=== PATIENT | female | born 1975 | race Caucasian/White ===

== ENCOUNTER 2021-02-26 05:43 | Outpatient (CLI) | payer BC ==
[~2021-02-26] VITALS: Ht 170.2 cm; Wt 80.2 kg
[~2021-02-26 05:43] MED LIST: CPR500T PO; FLC100T1 PO; HYDR-3583 PO; METO-354 PO; OMEP-10 PO; SCP1.5TD TOP; sprintec PO
[2021-02-26] MEDS ORDERED: FEXO1TAB43 PO (13:21)
[2021-02-26] MEDS ORDERED: OMEP20TA7 PO (13:21)
== END 2021-02-26 15:15 | disposition home or self-care (01) ==
LOC: PREOP 05:43
PROVIDERS: ATTEND Surgery
DX: Z01.818 Encounter for other preprocedural examination (principal)

== ENCOUNTER 2021-03-05 07:10 | Day surgery (SDC) | payer BC ==
[~2021-03-05] VITALS: Ht 170.8 cm; Wt 80.2 kg
[2021-03-05] VITALS (8 sets, daily range): BP systolic 106–132; BP diastolic 71–95
[~2021-03-05 07:10] MED LIST changes: +FEXO1TAB43 PO; +OMEP20TA7 PO
[2021-03-05] MEDS ORDERED: LACTATED RINGERS 1,000 ML IV ONE (07:17)
[2021-03-05] MEDS ORDERED: PROPOFOL INJECTION 50 ML IV ONE ×2 (08:11→08:20)
[2021-03-05] MEDS ORDERED: LACTATED RINGERS 1,000 ML IV STA (08:11)
[2021-03-05] MEDS ORDERED: LACTATED RINGERS 1,000 ML IV SCH (08:15)
--- NOTE | 2021-03-05 08:48 | Discharge Inst-Simple/Standard ---
Discharge Inst-Standard Patient Instructions/Follow Up Plan of Care/Instructions/FU: 5 year Lucina, any issues with bowel before that be seen at that time. Activity as Tolerated: Yes Discharge Diet: Regular Diet (high fiber) MICHELLE BAH DO Mar 05, 2021 08:48
--- NOTE | 2021-03-05 12:59 | OPERATIVE REPORT ---
DATE OF SERVICE: 03/05/2021 PREOPERATIVE DIAGNOSIS: Family history of colon cancer. POSTOPERATIVE DIAGNOSIS: Normal colon. PROCEDURE: Colonoscopy. SURGEON: Michelle Verdugo DO ANESTHESIA: Per FACE MAN. ESTIMATED BLOOD LOSS: None. COMPLICATIONS: None. INDICATIONS: The patient is a 46-year-old female with family history of colon cancer. She understands risks and benefits of procedure and wished to proceed with procedure. Consent was signed in the chart. DESCRIPTION OF PROCEDURE: The patient was taken to the endoscopy suite, placed in left lateral recumbent position. Timeout was performed. Digital rectal exam was performed. There were no palpable polyps, masses or ulcerations. Scope was inserted in the rectum and advanced all the way to cecum with minimal difficulty. Prep was adequate. Scope was then slowly retracted back. No polyps, masses or ulcerations within the cecum, ascending, transverse, descending and sigmoid colon. Once in the rectum, scope was retroflexed noting no other pathology. Scope was returned to its normal position, slowly withdrawn until completely removed. The patient tolerated procedure well without any complications. She was taken to recovery room in stable condition. RECOMMENDATIONS: The patient will need repeat colonoscopy in 5 years. Any issues before that be reevaluated at that time and discuss repeating. Job ID: [id number] DocumentID: [id number] Dictated Date: 03/05/2021 08:50:27 Water Safety Instructor Date: 03/05/2021 12:58:35 Dictated By: MICHELLE VERDUGO DO
--- NOTE | 2021-03-05 14:19 | Anesthesia-General Post-Op ---
MAC Patient Condition Mental Status/LOC: Same as Preop Cardiovascular: Satisfactory Nausea/Vomiting: Absent Respiratory: Satisfactory Pain: Controlled Complications: Absent Post Op Complications Complications None Follow Up Care/Instructions Patient Instructions None needed. Anesthesiology Discharge Order Discharge Order Patient is doing well, no complaints, stable vital signs, no apparent adverse anesthesia problems. No complications reported per nursing. YUKI MONET CRNA Mar 05, 2021 14:19
== END 2021-03-05 09:30 | disposition home or self-care (01) ==
LOC: ENDO 07:10
PROVIDERS: ATTEND Surgery
DX: Z12.11 Encounter for screening for malignant neoplasm of colon (principal); K21.9 Gastro-esophageal reflux disease without esophagitis; Z80.0 Family history of malignant neoplasm of digestive organs; Z90.49 Acquired absence of other specified parts of digestive tract; Z87.891 Personal history of nicotine dependence

== ENCOUNTER 2022-06-30 17:35 | Emergency (ER) | payer BC ==
[~2022-06-30] VITALS: Ht 170.1 cm; Wt 77.1 kg
[~2022-06-30 17:35] MED LIST changes: +OMEP20TA56 PO; -OMEP20TA7 PO
--- NOTE | 2022-06-30 18:12 | ED Lower Extremity ---
General Chief Complaint: Lower Extremity Stated Complaint: RIGHT ANKLE PAIN, LEFT KNEE PAIN Nursing Triage Note: PT TO FT 1 WITH CC OF L KNEE AND L ANKLE PAIN. PT STATES MISSED THE BOTTOM STEP AT HOME AND TWISTED HER ANKLE AND HIT HER KNEE. PT DENIES HITTING HER HEAD. NO OTHER PAIN IS NOTED AT THIS TIME. Source: patient Exam Limitations: no limitations (CASSIDY KURTZ APRN) History of Present Illness Date Seen by Provider: Jun 30, 2022 Time Seen by Provider: 17:50 Initial Comments Patient is a 47 yo F who presents to the ED with L knee and R ankle pain after fell when she missed a step walking up the garage steps at her house. She states she fell onto her knees and twisted her R ankle. No medications for the symptoms today. States pain is worse in her R ankle with movement or ambulation. L knee pain is mild and only worse with palpation. She did not hit her head and denies any pain or injury outside of those listed above. Onset: this evening Pain/Injury Location: left knee; right ankle Method of Injury: fell (CASSIDY KURTZ APRN) Allergies and Home Medications Allergies Coded Allergies: sulfamethoxazole (Unverified Allergy, Unknown, 02/26/21) tramadol (Unverified Allergy, Unknown, 02/26/21) trimethoprim (Unverified Allergy, Unknown, 02/26/21) codeine (Unverified Adverse Reaction, Mild, NAUSEATED, 05/17/10) Patient Home Medication List Home Medication List Reviewed: Yes (CASSIDY KURTZ APRN) Fexofenadine/Pseudoephedrine (Virgen-D 24 Hour Tablet) 1 Each Tab.er.24h, 1 EACH PO DAILY, (Reported) Entered as Reported by: SUNSHINE PEDERSEN on 02/26/21 1321 Omeprazole (Omeprazole) 20 Mg Tablet.dr, 20 MG PO DAILY, (Reported) Entered as Reported by: SUNSHINE PEDERSEN on 02/26/21 1321 Review of Systems Constitutional: no symptoms reported EENTM: no symptoms reported Respiratory: no symptoms reported Cardiovascular: no symptoms reported Gastrointestinal: no symptoms reported Genitourinary: no symptoms reported Musculoskeletal: see HPI Skin: no symptoms reported (CASSIDY KURTZ APRN) Past Mvcmiog-Hpkafq-Twjqbu Hx Patient Social History Tobacco Use?: No Substance use?: No Alcohol Use?: No (CASSIDY KURTZ APRN) Immunizations Up To Date First/Initial COVID19 Vaccinat: NO Second COVID19 Vaccination Warner: NO Third COVID19 Vaccination Date: NO (CASSIDY KURTZ APRN) Past Medical History Surgery/Hospitalization HX: GALLBLADDER, TOTAL HYST Surgeries: Yes (LAP CHOLY SEP, 2007/ HYSTERECTOMY) Gallbladder, Hysterectomy Respiratory: No Cardiac: No Neurological: No Reproductive Disorders: No 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 Genitourinary: No Gastrointestinal: Yes Chronic Constipation Musculoskeletal: No Endocrine: No HEENT: No Loss of Vision: Denies Hearing Impairment: Denies Cancer: No Psychosocial: No Integumentary: No Blood Disorders: No Adverse Reaction/Blood Tranf: No (CASSIDY KURTZ APRN) Family Medical History Colon cancer requiring screening colonoscopy Physical Exam Vital Signs Vital Signs - First Documented 06/30/22 17:44 Temp 36.8 Pulse 80 Resp 18 B/P (MAP) 154/94 (114) Pulse Ox 98 O2 Delivery Room Air (COCO,KARLENE K DO) Vital Signs Capillary Refill : Less Than 3 Seconds (CASSIDY KURTZ APRN) Height, Weight, BMI Height: '" Weight: lbs. oz. kg; 26.00 BMI Method:Stated General Appearance: WD/WN, no apparent distress HEENT: PERRL/EOMI, normal ENT inspection Neck: non-tender, full range of motion, normal inspection Cardiovascular: normal peripheral pulses, regular rate, rhythm Respiratory: chest non-tender, lungs clear, normal breath sounds, no respiratory distress Gastrointestinal: normal bowel sounds, non tender, soft Back: normal inspection Knees: left knee normal inspection, left knee normal range of motion, left knee soft tissue tenderness Ankles: right ankle limited range of motion, right ankle pain, right ankle soft tissue tenderness, right ankle swelling (CASSIDY KURTZ APRN) Progress/Results/Core Measures Results/Orders Vital Signs/I&O 06/30/22 06/30/22 17:44 19:20 Temp 36.8 Pulse 80 80 Resp 18 18 B/P (MAP) 154/94 (114) 154/94 Pulse Ox 98 98 O2 Delivery Room Air Room Air (COCO,KARLENE K DO) Blood Pressure Mean: 114 Progress Progress Note : Progress Note Patient is nontoxic and well hydrated on exam. Lateral swelling noted to the R ankle. L knee exam is reassuring. Xrays of the R ankle and L knee are acutely negative for osseous injury. Will d/c home with recs for supportive care and follow-up with PCP for persistent symptoms. Return precautions for urgent symptomology discussed. Patient verbalized understanding. (CASSIDY KURTZ APRN) Departure Impression Primary Impression: Right ankle sprain Qualified Codes: S93.401A - Sprain of unspecified ligament of right ankle, initial encounter Additional Impression: Contusion of left knee Qualified Codes: S80.02XA - Contusion of left knee, initial encounter Disposition: HOME, SELF-CARE Condition: Stable Departure-Patient Inst. Decision time for Depature: 19:00 (CASSIDY KURTZ APRN) Referrals: FAWN ARTEAGA MD (PCP) Primary Care Physician Patient Instructions: Ankle Sprain ED ATTENDING PHYSICIAN NOTE: I WAS PHYSICALLY PRESENT ER PHYSICIAN, BUT I WAS NOT INVOLVED IN ANY DECISION MAKING OR ANY CARE OF THIS PATIENT, AND I AM NOT COLLABORATING PHYSICIAN. (KARLENE SEPULVEDA DO) CASSIDY KURTZ APRN Jun 30, 2022 18:12 KARLENE SEPULVEDA DO Jul 03, 2022 18:09
[2022-06-30] MEDS ORDERED: IBUPROFEN 600 MG (MOTRIN) TAB PO ONE (18:15)
--- NOTE | 2022-06-30 18:50 | Diagnostic Imaging Report ---
INDICATION: Injury, pain. FINDINGS: Three views of the right ankle showed no fracture, dislocation or acute-appearing articular irregularity. There is soft tissue swelling about the ankle laterally. No disruption of the mortise. IMPRESSION: Lateral swelling but no acute bony pathology apparent. Dictated by: Dictated on workstation # [id number]
--- NOTE | 2022-06-30 18:51 | Diagnostic Imaging Report ---
INDICATION: Knee and ankle pain, twisting injury. FINDINGS: Three-view left knee showed no fracture, dislocation, loose body, or acute articular irregularity. IMPRESSION: No acute-appearing abnormality. Dictated by: Dictated on workstation # [id number]
[2022-06-30 19:20] VITALS: BP 154/94
== END 2022-06-30 19:20 | disposition home or self-care (01) ==
LOC: EDUNIT# 17:35 → ER 17:38
DX: S93.401A Sprain of unspecified ligament of right ankle, initial encounter (principal); S80.02XA Contusion of left knee, initial encounter; Z28.310 Unvaccinated for COVID-19; W10.9XXA Fall (on) (from) unspecified stairs and steps, initial encounter; X50.1XXA Overexertion from prolonged static or awkward postures, initial encounter; Y93.01 Activity, walking, marching and hiking; Y92.59 Other trade areas as the place of occurrence of the external cause
CPT/HCPCS: 73562; 73610

== ENCOUNTER → 2023-05-04 | Outpatient (CLI) | payer BC ==
--- NOTE | 2023-05-04 16:06 | Diagnostic Imaging Report ---
INDICATION: Left hip region pain AP and frog-leg views of left hip are obtained. FINDINGS: No acute fracture or dislocation is identified. No abnormal lytic or sclerotic focus is seen, and there is no radiopaque foreign body. IMPRESSION: No acute abnormality. Dictated by: Dictated on workstation # [id number]
--- NOTE | 2023-05-04 16:16 | Diagnostic Imaging Report ---
INDICATION: Acute onset pain/lumbar radiculopathy. AP and lateral views of lumbar spine reveal normal curvature and alignment. Vertebral body heights are maintained. There is mild narrowing of the L1-L2 disc space with associated endplate spurring however no acute fracture is identified. IMPRESSION: Mild upper lumbar degenerative disc disease without acute abnormality identified. Dictated by: Dictated on workstation # [id number]
== END ==
LOC: RAD 13:29
PROVIDERS: ATTEND Physician Assistant
DX: M51.36 Other intervertebral disc degeneration, lumbar region (principal); M79.652 Pain in left thigh; M25.562 Pain in left knee; G89.29 Other chronic pain
CPT/HCPCS: 72100; 73502